=== PATIENT | female | born 1955 | race Caucasian/White ===

== ENCOUNTER 2019-02-13 17:14 | Inpatient (IN) | payer MEDICARE ==
[2019-02-13] MEDS ORDERED: CEFAZOLIN 2 GM/50 ML (PMX) 50 ML IVPB (18:00)
[2019-02-13] MEDS: ZOLPIDEM 5 MG TAB PO (21:00)
[2019-02-13] MEDS: GABAPENTIN 300 MG CAP PO (23:49)
[2019-02-14] MEDS ORDERED: NORepinephrine 8MG/250 ML (PMX 250 ML IV (06:30)
[2019-02-14] MEDS ORDERED: PHENYLephrine 20MG IN 250 ML 250 ML IV (06:30)
[2019-02-14] MEDS ORDERED: ISOFLURANE 15 MIN (07:00)
[2019-02-14] MEDS ORDERED: THROMBIN 5000 UNIT (RECOTHROM) VIAL (07:13)
[2019-02-14] MEDS ORDERED: VANCOMYCIN 1 GM INJ ×2 (07:13→15:44)
[2019-02-14] MEDS ORDERED: PAPAVERINE 60 MG INJ (07:13)
[2019-02-14] MEDS ORDERED: GELATIN SIZE 100 SPONGE (07:13)
[2019-02-14] MEDS ORDERED: HEPARIN 1000 UNITS/ML 10 ML INJ ×3 (07:14→11:27)
[2019-02-14] MEDS: VANCOMYCIN 1 GM (PMX) 250 ML IVPB (09:07)
[2019-02-14] MEDS: HEPARIN 1000 UNITS/ML 10 ML INJ IRR (09:15)
[2019-02-14] MEDS: PAPAVERINE 60 MG INJ IRR (09:15)
[2019-02-14] MEDS: VANCOMYCIN 1 GM INJ IRR (09:15)
[2019-02-14] MEDS ORDERED: NITROGLYCERIN 50 MG/D5W 250 ML BTL (09:56)
[2019-02-14] MEDS ORDERED: DOPamine-D5W 1.6 MG/ML 250 ML (09:56)
[2019-02-14] MEDS ORDERED: MIDAZOLAM 5 ML ×2 (09:57→12:03)
[2019-02-14] MEDS: ASPIRIN 600 MG SUPP PR (10:00)
[2019-02-14] MEDS: INSULIN HUMAN REGULAR 100 UNIT in SOD CHLORIDE 0.9% 99 ML IVPB (10:00)
[2019-02-14] MEDS: HEPARIN (10000 UNITS/ML) 10,000 UNIT, MILRINONE LACTATE 10 MG in SOD CHLORIDE 0.9% 1,00... SC (10:00)
[2019-02-14] MEDS: EPINEPHrine 4 MG in DEXTROSE 5% 246 ML IV (10:00)
[2019-02-14] MEDS ORDERED: MAGNESIUM SULFATE (MG) 50% 10 ML INJ (10:00)
[2019-02-14] MEDS: MILRINONE LACTATE 2 MG in SOD CHLORIDE 0.9% 50 ML IV (10:00)
[2019-02-14] MEDS ORDERED: POTASSIUM CHLORIDE 40 MEQ INJ (10:01)
[2019-02-14] MEDS ORDERED: ALBUMIN HUMAN 25% 200 ML (10:01)
[2019-02-14] MEDS ORDERED: NA BICARBONATE 8.4% 50 ML SYG (10:01)
[2019-02-14] MEDS ORDERED: LIDOCAINE 100 MG SYRINGE (10:01)
[2019-02-14] MEDS ORDERED: MANNITOL 20% 500 ML (10:02)
[2019-02-14] MEDS ORDERED: PHENYLephrine 10 MG INJ (10:02)
[2019-02-14] MEDS ORDERED: CA CHLORIDE 10% 10 ML SYRINGE (10:02)
[2019-02-14] MEDS ORDERED: AMINOCAPROIC ACID 5 GM INJ ×4 (10:02→14:04)
[2019-02-14] MEDS ORDERED: FUROSEMIDE 20 MG INJ ×2 (11:39→14:51)
[2019-02-14] MEDS ORDERED: CEFAZOLIN 1 GM INJ (14:04)
[2019-02-14] MEDS ORDERED: PROTAMINE 250 MG INJ ×2 (14:08→17:01)
[2019-02-14] MEDS ORDERED: LIDOCAINE 2% (SDV) 5 ML INJ (15:50)
[2019-02-14] MEDS ORDERED: ETOMIDATE 20 MG INJ (15:50)
[2019-02-14] MEDS ORDERED: ROCURONIUM 50 MG INJ (15:50)
[2019-02-14] MEDS: ACCU-CHEK XX ×8 (16:30→23:30)
[2019-02-14] MEDS ORDERED: DEXTROSE 50% 50 ML SYRINGE IV (16:30)
[2019-02-14] MEDS ORDERED: NITROGLYCERIN 50 MG/D5W (PMX) 250 ML IV ×2 (16:30→17:30)
[2019-02-14] MEDS ORDERED: SOD CHLORIDE 0.9% 250 ML IV* (16:39)
[2019-02-14] MEDS ORDERED: DIPHENHYDRAMINE 50 MG INJ IV (17:30)
[2019-02-14] MEDS ORDERED: LORAZEPAM 2 MG INJ IV (17:30)
[2019-02-14] MEDS ORDERED: MEPERIDINE 25 MG INJ IV (17:30)
[2019-02-14] MEDS ORDERED: DOPamine-D5W 1.6 MG/ML 250 ML IV (17:30)
[2019-02-14] MEDS ORDERED: morphine 2 MG INJ IV ×2 (17:30)
[2019-02-14] MEDS ORDERED: ONDANSETRON 4 MG INJ IV (17:30)
[2019-02-14] MEDS ORDERED: METOCLOPRAMIDE 10 MG INJ IV (17:30)
[2019-02-14] MEDS: DEXTROSE 50% 50 ML SYRINGE IV (18:48)
[2019-02-14] MEDS: POTASSIUM CHLORIDE 40 MEQ, CALCIUM CHLORIDE 10% 1 GM in DEXTROSE 5%-0.225% NACL 1,000 ML IV (20:04)
[2019-02-14] MEDS: FAMOTIDINE 20 MG TAB PO (20:41)
[2019-02-14] MEDS: NORepinephrine 8MG/250 ML (PMX 250 ML IV (20:49)
[2019-02-14] MEDS: PHENYLephrine 20MG IN 250 ML 250 ML IV ×2 (20:49→22:57)
[2019-02-14] MEDS: MILRINONE LACTATE 100 ML IV (20:50)
[2019-02-14] MEDS ORDERED: QUETIAPINE 100 MG TAB PO (21:00)
[2019-02-14] MEDS ORDERED: ATORVASTATIN 40 MG TAB PO (21:00)
[2019-02-14] MEDS: POTASSIUM CHLORIDE 50 ML IVPB ×2 (21:05→22:13)
[2019-02-14] MEDS: INSULIN HUMAN REGULAR 100 UNIT in SOD CHLORIDE 0.9% 99 ML IV (21:05)
[2019-02-14] MEDS: VANCOMYCIN 500 MG (PMX) 100 ML IVPB (22:18)
[2019-02-14] MEDS ORDERED: ALBUMIN HUMAN 5% 250 ML IV (22:30)
[2019-02-14] MEDS: NA BICARBONATE 8.4% 50 ML SYG IV (22:34)
[2019-02-14] MEDS: FAMOTIDINE 20 MG INJ IV (22:47)
[2019-02-14] MEDS: ACETAMINOPHEN 650 MG SUPP PR (22:47)
[2019-02-15] MEDS: EPINEPHrine 4 MG in DEXTROSE 5% 246 ML IV ×2 (00:01→21:00)
[2019-02-15] MEDS: DOPamine-D5W 1.6 MG/ML 250 ML IV (00:03)
[2019-02-15] MEDS: PHENYLephrine 20MG IN 250 ML 250 ML IV ×6 (00:04→05:38)
[2019-02-15] MEDS: ACCU-CHEK XX ×23 (00:59→22:38)
[2019-02-15] MEDS: ALBUMIN HUMAN 5% 250 ML IV ×4 (01:09→15:47)
[2019-02-15] MEDS: MILRINONE LACTATE 100 ML IV (02:31)
[2019-02-15] MEDS: NORepinephrine 8MG/250 ML (PMX 250 ML IV ×2 (03:18→12:44)
[2019-02-15] MEDS: HYDROmorphONE 0.5 MG/0.5 ML SYG IV ×2 (03:49→09:15)
[2019-02-15] MEDS: POTASSIUM CHLORIDE 50 ML IVPB ×4 (05:20→22:27)
[2019-02-15] MEDS: ACETAMINOPHEN 650 MG SUPP PR ×2 (05:48→17:52)
[2019-02-15] MEDS: POTASSIUM PHOSPHATE 40 MEQ in SOD CHLORIDE 0.9% 250 ML IVPB (06:27)
[2019-02-15] MEDS ORDERED: PHENYLephrine 20 MG in DEXTROSE 5% 250 ML IV (06:30)
[2019-02-15] MEDS: FAMOTIDINE 20 MG INJ IV ×2 (08:23→20:00)
[2019-02-15] MEDS ORDERED: ASPIRIN 325 MG TAB PO (09:00)
[2019-02-15] MEDS: ENOXAPARIN 40 MG/0.4 ML SYG SC (09:05)
[2019-02-15] MEDS: DEXTROSE 5% IV (09:29)
[2019-02-15] MEDS: PHENYLEPHRINE IV (09:29)
[2019-02-15] MEDS: POTASSIUM CHLORIDE 40 MEQ, CALCIUM CHLORIDE 10% 1 GM in DEXTROSE 5%-0.225% NACL 1,000 ML IV (09:40)
[2019-02-15] MEDS: VANCOMYCIN 500 MG (PMX) 100 ML IVPB ×2 (10:28→22:43)
[2019-02-15] MEDS: FENTAnyl (DRIP) 1000 mcg/100mL 100 ML IV (10:29)
[2019-02-15] MEDS: ASPIRIN 325 MG TAB PO (11:00)
[2019-02-15] MEDS: FUROSEMIDE 40 MG INJ IV ×2 (11:05→17:17)
[2019-02-15] MEDS ORDERED: VANCOMYCIN IV PER PHARMACY XX (11:30)
[2019-02-15] MEDS: PHENYLephrine 80 MG in DEXTROSE 5% 242 ML IV ×2 (12:26→18:22)
[2019-02-15] MEDS: LEVOFLOXACIN 750MG/D5W (PMX) 150 ML IVPB (12:30)
[2019-02-15] MEDS ORDERED: CEFEPIME 1GM/50 ML (PMX) 50 ML IVPB (14:30)
[2019-02-15] MEDS: MEROPENEM 1 GM/50ML(PMX) 50 ML IVPB ×2 (14:55→23:00)
[2019-02-15] MEDS: ONDANSETRON 4 MG INJ IV (17:15)
[2019-02-15] MEDS: ATORVASTATIN 40 MG TAB PO (20:53)
[2019-02-15] MEDS: INSULIN HUMAN REGULAR 100 UNIT in SOD CHLORIDE 0.9% 99 ML IV (20:58)
[2019-02-16] MEDS: ACCU-CHEK XX ×25 (00:29→23:30)
[2019-02-16] MEDS: MAGNESIUM SULFATE 1 GM/D5W 100 ML IVPB ×2 (00:40→01:58)
[2019-02-16] MEDS: NORepinephrine 8MG/250 ML (PMX 250 ML IV ×2 (01:57→20:33)
[2019-02-16] MEDS: PHENYLephrine 80 MG in DEXTROSE 5% 242 ML IV ×2 (02:06→11:22)
[2019-02-16] MEDS: FENTAnyl (DRIP) 1000 mcg/100mL 100 ML IV (03:18)
[2019-02-16] MEDS: POTASSIUM CHLORIDE 50 ML IVPB ×3 (05:42→13:51)
[2019-02-16] MEDS ORDERED: FUROSEMIDE 20 MG INJ IV ×3 (08:30)
[2019-02-16] MEDS: FUROSEMIDE 20 MG INJ IV ×3 (08:36→16:27)
[2019-02-16] MEDS: MEROPENEM 1 GM/50ML(PMX) 50 ML IVPB ×2 (08:36→20:51)
[2019-02-16] MEDS: FAMOTIDINE 20 MG INJ IV ×2 (08:40→20:51)
[2019-02-16] MEDS: ENOXAPARIN 40 MG/0.4 ML SYG SC (08:59)
[2019-02-16] MEDS: ASPIRIN 325 MG TAB PO (09:00)
[2019-02-16] MEDS: VANCOMYCIN 500 MG (PMX) 100 ML IVPB ×2 (10:55→22:46)
[2019-02-16] MEDS: ASPIRIN 300 MG SUPP PR (12:16)
[2019-02-16] MEDS: EPINEPHrine 4 MG in DEXTROSE 5% 246 ML IV (13:00)
[2019-02-16] MEDS: ATORVASTATIN 40 MG TAB PO (20:52)
[2019-02-16] MEDS: BUMETANIDE IVPB (23:43)
[2019-02-16] MEDS: DEXTROSE 5% IVPB (23:43)
[2019-02-16] MEDS: OXYCODONE/ACETAMINOPHEN (5/325) TAB PO (23:56)
[2019-02-17] MEDS: FUROSEMIDE 20 MG INJ IV (00:01)
[2019-02-17] MEDS: ACCU-CHEK XX ×16 (00:02→15:30)
[2019-02-17] MEDS: EPINEPHrine 4 MG in DEXTROSE 5% 246 ML IV (00:06)
[2019-02-17] MEDS: ONDANSETRON 4 MG INJ IV (01:25)
[2019-02-17] MEDS: OXYCODONE/ACETAMINOPHEN (5/325) TAB PO (02:43)
[2019-02-17] MEDS: POTASSIUM CHLORIDE 50 ML IVPB ×3 (06:01→11:11)
[2019-02-17] MEDS: ENOXAPARIN 40 MG/0.4 ML SYG SC (09:00)
[2019-02-17] MEDS: ASPIRIN 325 MG TAB PO ×2 (09:00→09:20)
[2019-02-17] MEDS: MEROPENEM 1 GM/50ML(PMX) 50 ML IVPB ×2 (09:19→20:16)
[2019-02-17] MEDS: FAMOTIDINE 20 MG INJ IV ×2 (09:19→20:16)
[2019-02-17] MEDS: ASPIRIN 300 MG SUPP PR (10:42)
[2019-02-17] MEDS: VANCOMYCIN 500 MG (PMX) 100 ML IVPB (10:42)
[2019-02-17] MEDS: ACETAMINOPHEN 325 MG TAB PO (14:11)
[2019-02-17] MEDS ORDERED: GLUCOSE GEL 15 GRAM TUBE PO ×2 (16:00)
[2019-02-17] MEDS ORDERED: GLUCOSE GEL 15 GRAM TUBE BUCCAL (16:00)
[2019-02-17] MEDS ORDERED: GLUCAGON 1 MG INJ IM (16:00)
[2019-02-17] MEDS ORDERED: DEXTROSE 50% 50 ML SYRINGE IV ×2 (16:00)
[2019-02-17] MEDS: INSULIN ASPART [NOVOLOG] 3 ML PEN SC ×2 (17:00→20:21)
[2019-02-17] MEDS: ATORVASTATIN 40 MG TAB PO (20:17)
[2019-02-17] MEDS: NORepinephrine 8MG/250 ML (PMX 250 ML IV (22:06)
[2019-02-18] MEDS: INSULIN ASPART [NOVOLOG] 3 ML PEN SC ×6 (00:05→20:56)
[2019-02-18] MEDS: ASPIRIN 325 MG TAB PO (08:30)
[2019-02-18] MEDS: NEUTRA-PHOS 250 MG PACKET PO (08:30)
[2019-02-18] MEDS: MEROPENEM 1 GM/50ML(PMX) 50 ML IVPB ×2 (08:31→20:55)
[2019-02-18] MEDS: ENOXAPARIN 40 MG/0.4 ML SYG SC (08:33)
[2019-02-18] MEDS: FAMOTIDINE 20 MG INJ IV ×2 (08:39→20:55)
[2019-02-18] MEDS: ONDANSETRON 4 MG INJ IV (10:13)
[2019-02-18] MEDS: ACETAMINOPHEN 325 MG TAB PO (16:38)
[2019-02-18] MEDS: ATORVASTATIN 40 MG TAB PO (20:55)
[2019-02-18] MEDS: NORepinephrine 8MG/250 ML (PMX 250 ML IV (21:02)
[2019-02-18] MEDS: GABAPENTIN 300 MG CAP PO (22:16)
[2019-02-18] MEDS: QUETIAPINE 100 MG TAB PO (22:16)
[2019-02-19] MEDS: INSULIN ASPART [NOVOLOG] 3 ML PEN SC ×6 (01:00→21:00)
[2019-02-19] MEDS: POTASSIUM CHLORIDE 50 ML IVPB (06:38)
[2019-02-19] MEDS: POTASSIUM CHLORIDE (SR) 20 MEQ TAB PO (07:56)
[2019-02-19] MEDS: FAMOTIDINE 20 MG INJ IV (07:56)
[2019-02-19] MEDS: ASPIRIN 325 MG TAB PO (08:00)
[2019-02-19] MEDS: QUETIAPINE 100 MG TAB PO ×2 (08:00→21:08)
[2019-02-19] MEDS: MEROPENEM 1 GM/50ML(PMX) 50 ML IVPB ×2 (08:03→21:08)
[2019-02-19] MEDS: ENOXAPARIN 40 MG/0.4 ML SYG SC (08:18)
[2019-02-19] MEDS: OXYCODONE/ACETAMINOPHEN (5/325) TAB PO (09:08)
[2019-02-19] MEDS: NORepinephrine 8MG/250 ML (PMX 250 ML IV (19:12)
[2019-02-19] MEDS: FAMOTIDINE 20 MG TAB PO (21:08)
[2019-02-19] MEDS: GABAPENTIN 300 MG CAP PO (21:08)
[2019-02-19] MEDS: ATORVASTATIN 40 MG TAB PO (21:08)
[2019-02-20] MEDS: INSULIN ASPART [NOVOLOG] 3 ML PEN SC ×6 (01:00→22:46)
[2019-02-20] MEDS: MEROPENEM 1 GM/50ML(PMX) 50 ML IVPB ×2 (08:16→20:43)
[2019-02-20] MEDS: FAMOTIDINE 20 MG TAB PO ×2 (08:17→20:45)
[2019-02-20] MEDS: ASPIRIN 325 MG TAB PO (08:17)
[2019-02-20] MEDS: MIDODRINE 5 MG TAB PO ×2 (08:17→17:30)
[2019-02-20] MEDS: ENOXAPARIN 40 MG/0.4 ML SYG SC (08:18)
[2019-02-20] MEDS: FUROSEMIDE 40 MG INJ IV (17:32)
[2019-02-20] MEDS: ATORVASTATIN 40 MG TAB PO (20:44)
[2019-02-20] MEDS: QUETIAPINE 100 MG TAB PO (20:45)
[2019-02-20] MEDS: GABAPENTIN 300 MG CAP PO (20:54)
[2019-02-20] MEDS: NORepinephrine 8MG/250 ML (PMX 250 ML IV (23:12)
[2019-02-21] MEDS: INSULIN ASPART [NOVOLOG] 3 ML PEN SC (01:00)
[2019-02-21] MEDS: Insulin NOVOLOG SS MILD Algorithm (SS with meals and bedtime) SC ×4 (07:05→21:00)
[2019-02-21] MEDS ORDERED: INSULIN ASPART [NOVOLOG] 3 ML PEN SC (07:05)
[2019-02-21] MEDS: MEROPENEM 1 GM/50ML(PMX) 50 ML IVPB ×2 (08:18→22:01)
[2019-02-21] MEDS: FAMOTIDINE 20 MG TAB PO ×2 (08:18→21:59)
[2019-02-21] MEDS: ASPIRIN 325 MG TAB PO (08:18)
[2019-02-21] MEDS: MIDODRINE 5 MG TAB PO ×3 (08:19→22:01)
[2019-02-21] MEDS: ENOXAPARIN 40 MG/0.4 ML SYG SC (08:20)
[2019-02-21] MEDS: POTASSIUM CHLORIDE 50 ML IVPB ×3 (09:43→12:11)
[2019-02-21] MEDS: FUROSEMIDE 20 MG INJ IV ×2 (09:58→14:06)
[2019-02-21] MEDS: POTASSIUM CHLORIDE 20 MEQ POWDER FOR ORAL SOLN PO (10:58)
[2019-02-21] MEDS: ONDANSETRON 4 MG INJ IV (13:09)
[2019-02-21] MEDS: WARFARIN 5 MG TAB PO (17:19)
[2019-02-21] MEDS: ATORVASTATIN 40 MG TAB PO (21:59)
[2019-02-21] MEDS: GABAPENTIN 300 MG CAP PO (21:59)
[2019-02-21] MEDS: QUETIAPINE 100 MG TAB PO (21:59)
[2019-02-22] MEDS: Insulin NOVOLOG SS MILD Algorithm (SS with meals and bedtime) SC ×4 (07:00→20:55)
[2019-02-22] MEDS: MIDODRINE 5 MG TAB PO ×2 (08:38→20:51)
[2019-02-22] MEDS: FAMOTIDINE 20 MG TAB PO ×2 (08:38→20:51)
[2019-02-22] MEDS: FUROSEMIDE 20 MG INJ IV ×2 (08:39→17:25)
[2019-02-22] MEDS: ASPIRIN 81 MG TAB PO (08:39)
[2019-02-22] MEDS: MEROPENEM 1 GM/50ML(PMX) 50 ML IVPB (08:39)
[2019-02-22] MEDS: WARFARIN 2 MG TAB PO (17:24)
[2019-02-22] MEDS: ATORVASTATIN 40 MG TAB PO (20:50)
[2019-02-22] MEDS: QUETIAPINE 100 MG TAB PO (20:51)
[2019-02-22] MEDS: GABAPENTIN 300 MG CAP PO (20:51)
[2019-02-23] MEDS: Insulin NOVOLOG SS MILD Algorithm (SS with meals and bedtime) SC ×4 (07:00→21:00)
[2019-02-23] MEDS: FUROSEMIDE 20 MG INJ IV ×2 (08:47→17:36)
[2019-02-23] MEDS: FAMOTIDINE 20 MG TAB PO ×2 (08:47→21:25)
[2019-02-23] MEDS: ASPIRIN 81 MG TAB PO (08:47)
[2019-02-23] MEDS: MIDODRINE 2.5 MG TAB PO ×2 (09:40→21:25)
[2019-02-23] MEDS: OXYCODONE/ACETAMINOPHEN (5/325) TAB PO (15:29)
[2019-02-23] MEDS: WARFARIN 3 MG TAB PO (17:36)
[2019-02-23] MEDS: ATORVASTATIN 40 MG TAB PO (21:25)
[2019-02-23] MEDS: GABAPENTIN 300 MG CAP PO (21:25)
[2019-02-23] MEDS: QUETIAPINE 100 MG TAB PO (21:25)
[2019-02-24] MEDS: FUROSEMIDE 40 MG TAB PO (06:16)
[2019-02-24] MEDS: Insulin NOVOLOG SS MILD Algorithm (SS with meals and bedtime) SC ×4 (07:00→21:00)
[2019-02-24] MEDS: ASPIRIN 81 MG TAB PO (08:07)
[2019-02-24] MEDS: MIDODRINE 2.5 MG TAB PO ×2 (08:07→21:02)
[2019-02-24] MEDS: FAMOTIDINE 20 MG TAB PO ×2 (08:07→21:02)
[2019-02-24] MEDS: DIPHENHYDRAMINE 25 MG CAP PO (13:21)
[2019-02-24] MEDS: OXYCODONE/ACETAMINOPHEN (5/325) TAB PO (13:28)
[2019-02-24] MEDS: WARFARIN 3 MG TAB PO (16:35)
[2019-02-24] MEDS: ATORVASTATIN 40 MG TAB PO (21:01)
[2019-02-24] MEDS: GABAPENTIN 300 MG CAP PO (21:01)
[2019-02-24] MEDS: QUETIAPINE 100 MG TAB PO (21:01)
[2019-02-24] MEDS: HYDROCORTISONE 2.5% 28.35 GM OINT TOP (21:03)
[2019-02-25] MEDS: FUROSEMIDE 40 MG TAB PO (06:18)
[2019-02-25] MEDS: OXYCODONE/ACETAMINOPHEN (5/325) TAB PO ×2 (06:18→13:55)
[2019-02-25] MEDS: Insulin NOVOLOG SS MILD Algorithm (SS with meals and bedtime) SC ×4 (07:00→21:00)
[2019-02-25] MEDS: MIDODRINE 2.5 MG TAB PO (08:12)
[2019-02-25] MEDS: DIPHENHYDRAMINE 25 MG CAP PO ×2 (08:12→17:05)
[2019-02-25] MEDS: FAMOTIDINE 20 MG TAB PO ×2 (08:12→21:03)
[2019-02-25] MEDS: ASPIRIN 81 MG TAB PO (08:12)
[2019-02-25] MEDS: HYDROCORTISONE 2.5% 28.35 GM OINT TOP ×2 (09:58→21:05)
[2019-02-25] MEDS: WARFARIN 3 MG TAB PO (17:05)
[2019-02-25] MEDS: ATORVASTATIN 40 MG TAB PO (21:03)
[2019-02-25] MEDS: GABAPENTIN 300 MG CAP PO (21:03)
[2019-02-25] MEDS: QUETIAPINE 100 MG TAB PO (21:03)
[2019-02-25] MEDS: METOPROLOL 25 MG TAB PO (21:04)
[2019-02-26] MEDS: FUROSEMIDE 40 MG TAB PO (05:22)
[2019-02-26] MEDS: Insulin NOVOLOG SS MILD Algorithm (SS with meals and bedtime) SC (07:00)
[2019-02-26] MEDS: FAMOTIDINE 20 MG TAB PO (08:33)
[2019-02-26] MEDS: METOPROLOL 25 MG TAB PO (08:33)
[2019-02-26] MEDS: ASPIRIN 81 MG TAB PO (08:33)
[2019-02-26] MEDS: HYDROCORTISONE 2.5% 28.35 GM OINT TOP (08:35)
== END 2019-02-26 16:31 | disposition home health service (06) | DRG 219 ==
LOC: TEL 02-14 11:45 → ICU 02-14 11:46 → TEL 17:14 → 6WM 02-21 23:02
PROC: 02RG08Z Replacement of Mitral Valve with Zooplastic Tissue, Open Approach (ICD-10-PCS; principal; 2019-02-14 10:00)
PROC: 021109W Bypass Coronary Artery, Two Arteries from Aorta with Autologous Venous Tissue, Open Approach (ICD-10-PCS; 2019-02-14 10:00)
PROC: 5A1221Z Performance of Cardiac Output, Continuous (ICD-10-PCS; 2019-02-14 10:00)
PROC: 30233R1 Transfusion of Nonautologous Platelets into Peripheral Vein, Percutaneous Approach (ICD-10-PCS; 2019-02-14 10:01)
PROC: 30233K1 Transfusion of Nonautologous Frozen Plasma into Peripheral Vein, Percutaneous Approach (ICD-10-PCS; 2019-02-14 10:01)
PROC: 30233N1 Transfusion of Nonautologous Red Blood Cells into Peripheral Vein, Percutaneous Approach (ICD-10-PCS; 2019-02-14 10:01)
PROC: 5A1935Z Respiratory Ventilation, Less than 24 Consecutive Hours (ICD-10-PCS; 2019-02-14 10:01)
DX: I25.10 Atherosclerotic heart disease of native coronary artery without angina pectoris (principal); R57.0 Cardiogenic shock; G92 Toxic encephalopathy; J96.90 Respiratory failure, unspecified, unspecified whether with hypoxia or hypercapnia; I50.33 Acute on chronic diastolic (congestive) heart failure; J96.00 Acute respiratory failure, unspecified whether with hypoxia or hypercapnia; R65.10 Systemic inflammatory response syndrome (SIRS) of non-infectious origin without acute organ dysfunction; N17.9 Acute kidney failure, unspecified; Z99.11 Dependence on respirator [ventilator] status; I11.0 Hypertensive heart disease with heart failure; I27.20 Pulmonary hypertension, unspecified; E66.01 Morbid (severe) obesity due to excess calories; I05.0 Rheumatic mitral stenosis; E78.5 Hyperlipidemia, unspecified; Z68.28 Body mass index [BMI] 28.0-28.9, adult; F32.9 Major depressive disorder, single episode, unspecified; F41.9 Anxiety disorder, unspecified; D64.9 Anemia, unspecified; E87.6 Hypokalemia; E83.42 Hypomagnesemia; D69.6 Thrombocytopenia, unspecified; Z79.01 Long term (current) use of anticoagulants; Z79.82 Long term (current) use of aspirin
CPT/HCPCS: 36430; 36592; 36600; 70450; 71045; 80048; 80076; 80202; 81001; 81003; 82043; 82803; 82962; 83605; 83735; 84100; 84132; 84145; 84155; 84300; 85025; 85610; 85730; 86022; 86644; 86850; 86900; 86901; 86920; 87040-91; 87070; 87081; 87086; 88305; 92526; 92610; 93005; 93306; 93312; 93325; 94002; 94003; 94770; 97110; 97116; 97162; 97530